=== PATIENT | male | born 1965 | race Caucasian/White ===

== ENCOUNTER 2016-08-24 23:30 | Emergency (ER) | payer OTHER ==
--- NOTE | ~2016-08-24 | CR72 ---
[facility]. [facility] A Service of [facility] & [facility] RADIOLOGY TEXT RESULTS PATIENT: RICHIE DAVENPORT LOCATION: SED : 61 UNIT #: [id number] AGE: [address]: Shane Nettles MD SEX: M ORDER DR: [id number] [place] [id number] E MR#: [id number] Acc #: [id number] NAME: RICHIE DAVENPORT : 1965 SEX: M STUDY DATE/TIME: 08/25/2016 0:46 UNIT: SED ROOM: STUDY DESCRIPTION: CR Chest Single View Portable Attending Physician: Shane Nettles M.D. Ordering Physician: Shane Nettles M.D. Primary Care Physician: Rahul Masters M.D. MEDICAL IMAGING REPORT This report is preliminary unless electronic signature is present. EXAM Portable chest INDICATIONS Cough, congestion for 3 days. FINDINGS A portable view of the chest was obtained. The heart size and vascularity are normal and the lungs are clear. There are sternotomy wires present. IMPRESSION No active disease. Dictated by... Jamie Abreu M.D. THIS IS AN ELECTRONICALLY VERIFIED REPORT Jamie Abreu M.D. at 08/25/2016 5:05 AM MIS/yordan TD: 08/25/2016 02:25 JOB #: [id number] MEDICAL IMAGING REPORT Page 1 of 1
--- NOTE | ~2016-08-24 | EKG ---
PATIENT: RICHIE DAVENPORT UNIT #: [id number] Ventricular Rate: 82 BPM Atrial Rate: 83 BPM P-R Interval: 178 ms QRS Duration: 96 ms Q-T Interval: 388 ms QTC Calculation(Bezet): 453 ms P [place]: 54 degrees Calculated R [place]: 44 degrees Calculated T [place]: -144 degrees Diagnosis Line: Normal sinus rhythm Diagnosis Line: Left ventricular hypertrophy with repolarization Diagnosis Line: abnormality Diagnosis Line: Abnormal ECG Diagnosis Line: When compared with ECG of 09-JAN-2016 02:49, Diagnosis Line: Premature ventricular complexes are no longer Diagnosis Line: Present Diagnosis Line: Vent. rate has decreased BY 41 BPM Diagnosis Line: Confirmed by ALYSSA GRIMES MD ([id number]) on 08/31/2016 Diagnosis Line: 11:55:03 AM INTERPRETING MD: CORNELIO FRAZIER
[~2016-08-24 23:30] MED LIST: BAYER ASPIRIN325 M1 PO; INSULIN; KLONOPIN2 MG PO; METFORMIN HCL500 M1 PO; PERCOCET 10/31 UDTA1 PO
[2016-08-24] MEDS ORDERED: NO MEDICATIONS (23:33)
[2016-08-24] MEDS ORDERED: PERCOCET 5/321 UDTAB PO (23:33)
[2016-08-25 00:41] LABS: BASOPHIL% 0.7 % (0-2.5); EOSINOPHIL# 0.1 X10e3 (0-0.7); EOSINOPHIL% 1.6 % (0.0-7.0); HEMATOCRIT 46.8 % (38.0-50.0); HEMOGLOBIN 16.4 gm/dL (13.0-16.0); LYMPHOCYTE# 1.2 X10e3 (1.0-3.5); LYMPHOCYTE% 20.7 % (17.0-45.0); MEAN CELL VOLUME 85.5 FL (83-96); MEAN CORPUSCULAR HEMOGLOBIN 29.9 PG (28-34); MONOCYTE# 0.4 X10e3 (0-1.0); MONOCYTE% 6.9 % (3.0-12.0); NEUTROPHIL# 4.1 X10e3 (1.5-7.1); NEUTROPHIL% 70.1 % (40-75); PLATELET COUNT 146 X10e3 (140-420); RED BLOOD COUNT 5.47 X10e (3.90-5.60); RED CELL DISTRIBUTION WIDTH 13.4 % (11.0-15.5); WHITE BLOOD COUNT 5.8 X10e3 (4.0-10.5)
[2016-08-25 00:42] LABS: DIFF IND NO
[2016-08-25 00:51] LABS: POC - CKMB 2.6 ng/mL (0.0-7.9); POC - TROPONIN 0.14 ng/mL (<=0.05)
[2016-08-25 01:01] LABS: BUN/CREATININE RATIO 12.72; CALCIUM SERUM 8.4 mg/dL (8.4-10.2); CREATININE SERUM 1.1 mg/dL (0.6-1.4); GLOM FILT RATE Estimated 76.8 mL/min (>60); POTASSIUM 3.1 mmol/L (3.5-5.1)
== END 2016-08-25 01:55 | disposition left against medical advice (07) ==
LOC: SED 23:30
PROVIDERS: Emergency Medicine
DX: R07.9 Chest pain, unspecified (principal); R05 Cough; I16.1 Hypertensive emergency; R79.89 Other specified abnormal findings of blood chemistry; E11.9 Type 2 diabetes mellitus without complications; F17.200 Nicotine dependence, unspecified, uncomplicated
CPT/HCPCS: 36415; 71010; 80048; 82553; 84484; 85025; 93005; 96374; 99284